=== PATIENT | female | born 1955 | race Caucasian/White ===

== ENCOUNTER 2016-08-28 06:48 | Day surgery (SDC) | payer MEDICARE, BC ==
[~2016-08-28 06:48] MED LIST: ALPRAZOLAM2 MG; AMITRIPTYLINE H25 M1 PO; ASPIRIN325 M3 PO; ASPIRIN325 MG; CABERGOLINE0.5 MG; CALTRATE 600 +1 EAC2 PO; HYDROCHLOROTH12.5 M2 PO; IRON325 M3 PO; KLONOPIN1 M1 PO; LAMICTAL200 M2 PO; LAMOTRIGINE; LEVOXYL100 MCG; LOPRESSOR50 M1 PO; MULTIVITAMIN; OXYBUTYNIN CHLOR5 M2 PO; PAROXETINE HCL20 MG; PAXIL40 M1 PO; PRINIVIL20 M1 PO; PRINZIDE 20/12.1 TAB; RISPERDAL1 MG; RISPERDAL3 M2 PO; SYNTHROID137 MC1 PO
[2016-08-28 08:19] LABS: ANION GAP 12 mmol/L (0-20); BLOOD UREA NITROGEN 10 mg/dl (6-24); CALCIUM 8.8 mg/dl (8.5-10.5); CARBON DIOXIDE-VENOUS 30 mmol/L (22-32); CHLORIDE 104 mmol/l (96-110); CREATININE 0.88 mg/dl (0.50-1.10); GLUCOSE 99 mg/dL (70-110); POTASSIUM 3.9 mmol/L (3.7-5.1); SODIUM 142 mmol/L (135-145); eGFR VALUE FOR BLACK 82 mL/Min
== END 2016-08-28 11:25 ==
LOC: ENDOS 06:48 → SHSA 06:49
PROVIDERS: Anesthesiology
PROC: 0DJD8ZZ Inspection of Lower Intestinal Tract, Via Natural or Artificial Opening Endoscopic (ICD-10-PCS; principal; 2016-08-28)
DX: Z12.11 Encounter for screening for malignant neoplasm of colon (principal); K57.30 Diverticulosis of large intestine without perforation or abscess without bleeding; K64.8 Other hemorrhoids; I25.10 Atherosclerotic heart disease of native coronary artery without angina pectoris; E11.9 Type 2 diabetes mellitus without complications; E03.9 Hypothyroidism, unspecified; F41.9 Anxiety disorder, unspecified; F32.9 Major depressive disorder, single episode, unspecified; J45.909 Unspecified asthma, uncomplicated; Z86.010 Personal history of colon polyps; Z83.71 Family history of colonic polyps; Z88.0 Allergy status to penicillin; Z88.2 Allergy status to sulfonamides; Z88.1 Allergy status to other antibiotic agents; Z91.040 Latex allergy status; Z90.49 Acquired absence of other specified parts of digestive tract; Z79.899 Other long term (current) drug therapy; Z98.890 Other specified postprocedural states